=== PATIENT | female | born 1995 | race Caucasian/White ===

== ENCOUNTER → 2017-06-15 | Outpatient (CLI) | payer OTHER | LOC: M PAIN 14:00 | DX: R20.8 Other disturbances of skin sensation (principal); R10.2 Pelvic and perineal pain; J45.909 Unspecified asthma, uncomplicated; F41.9 Anxiety disorder, unspecified; F32.9 Major depressive disorder, single episode, unspecified; N80.9 Endometriosis, unspecified; K59.00 Constipation, unspecified; G43.909 Migraine, unspecified, not intractable, without status migrainosus; E05.90 Thyrotoxicosis, unspecified without thyrotoxic crisis or storm; Z79.899 Other long term (current) drug therapy; Z88.8 Allergy status to other drugs, medicaments and biological substances; Z87.891 Personal history of nicotine dependence | CPT/HCPCS: G0463 ==

== ENCOUNTER → 2017-06-28 | Outpatient (REF) | payer OTHER | LOC: M LAB REF 13:14 | DX: R87.612 Low grade squamous intraepithelial lesion on cytologic smear of cervix (LGSIL) (principal) ==

== ENCOUNTER → 2017-07-10 | Outpatient (CLI) | payer OTHER | LOC: M PAIN 15:15 | DX: R20.8 Other disturbances of skin sensation (principal); R10.2 Pelvic and perineal pain; G89.29 Other chronic pain; J45.909 Unspecified asthma, uncomplicated; Z79.891 Long term (current) use of opiate analgesic; Z79.899 Other long term (current) drug therapy; Z88.8 Allergy status to other drugs, medicaments and biological substances; Z87.891 Personal history of nicotine dependence | CPT/HCPCS: G0463 ==

== ENCOUNTER → 2017-07-13 | Outpatient (CLI) | payer OTHER | LOC: M PAIN 13:45 | DX: R20.8 Other disturbances of skin sensation (principal); R10.2 Pelvic and perineal pain; J45.909 Unspecified asthma, uncomplicated; Z79.891 Long term (current) use of opiate analgesic; Z79.899 Other long term (current) drug therapy; Z88.8 Allergy status to other drugs, medicaments and biological substances; Z87.891 Personal history of nicotine dependence | CPT/HCPCS: G0463 ==

== ENCOUNTER → 2017-07-26 | Outpatient (CLI) | payer BC, OTHER ==
[~2017-07-26] MED LIST: BUPIVACAINE HCL 0.25% 30 ML VIAL As Ordered; LIDOCAINE 1% SDV INJ 30 ML VIAL As Ordered; MIDAZOLAM INJ 2 MG/2 ML VIAL (J2250) As Ordered; TRIAMCINOLONE ACETONIDE SUSP 40 MG/ML VIAL (J3301) As Ordered; fentaNYL 100 MCG/2 ML INJECTION (J3010) As Ordered
== END ==
LOC: M PAIN 11:00
DX: G89.29 Other chronic pain (principal); R10.2 Pelvic and perineal pain; L90.5 Scar conditions and fibrosis of skin; J44.9 Chronic obstructive pulmonary disease, unspecified; F41.9 Anxiety disorder, unspecified; F32.9 Major depressive disorder, single episode, unspecified; Z79.899 Other long term (current) drug therapy; Z88.8 Allergy status to other drugs, medicaments and biological substances
CPT/HCPCS: J3301

== ENCOUNTER → 2017-09-21 | Outpatient (CLI) | payer OTHER | LOC: M PAIN 13:45 | DX: D36.15 Benign neoplasm of peripheral nerves and autonomic nervous system of abdomen (principal); R20.8 Other disturbances of skin sensation; J45.909 Unspecified asthma, uncomplicated; F41.9 Anxiety disorder, unspecified; F32.9 Major depressive disorder, single episode, unspecified; Z79.899 Other long term (current) drug therapy; Z88.8 Allergy status to other drugs, medicaments and biological substances; Z87.891 Personal history of nicotine dependence | CPT/HCPCS: G0463 ==

== ENCOUNTER → 2017-10-16 | Outpatient (CLI) | payer BC, OTHER | LOC: M PAIN 11:45 | DX: G89.29 Other chronic pain (principal); G57.92 Unspecified mononeuropathy of left lower limb; J45.909 Unspecified asthma, uncomplicated; F41.9 Anxiety disorder, unspecified; F32.9 Major depressive disorder, single episode, unspecified; F17.210 Nicotine dependence, cigarettes, uncomplicated; Z79.899 Other long term (current) drug therapy; Z88.8 Allergy status to other drugs, medicaments and biological substances | CPT/HCPCS: J3301 ==

== ENCOUNTER → 2017-12-26 | Outpatient (CLI) | payer OTHER | LOC: M PAIN 14:00 | DX: R20.8 Other disturbances of skin sensation (principal); Z79.891 Long term (current) use of opiate analgesic; Z79.899 Other long term (current) drug therapy; Z87.891 Personal history of nicotine dependence; Z88.8 Allergy status to other drugs, medicaments and biological substances | CPT/HCPCS: G0463 ==

== ENCOUNTER → 2018-02-15 | Outpatient (CLI) | payer OTHER | LOC: M PAIN 13:00 | DX: L90.5 Scar conditions and fibrosis of skin (principal); J45.909 Unspecified asthma, uncomplicated; F41.9 Anxiety disorder, unspecified; F32.9 Major depressive disorder, single episode, unspecified; F17.290 Nicotine dependence, other tobacco product, uncomplicated; Z79.899 Other long term (current) drug therapy; Z88.8 Allergy status to other drugs, medicaments and biological substances | CPT/HCPCS: G0463 ==

== ENCOUNTER → 2018-10-04 | Outpatient (CLI) | payer OTHER, BC ==
[~2018-10-04] MED LIST changes: -BUPIVACAINE HCL 0.25% 30 ML VIAL As Ordered; +IBUP80TA PO; -LIDOCAINE 1% SDV INJ 30 ML VIAL As Ordered; +MACR100C43 PO; -MIDAZOLAM INJ 2 MG/2 ML VIAL (J2250) As Ordered; +MILK120011 PO; +MINEOIL PO; +MORP20SO PO; +PERC5TAB12 PO; +PERCOCET PO; -TRIAMCINOLONE ACETONIDE SUSP 40 MG/ML VIAL (J3301) As Ordered; +VITAPRTA PO; +[UNRECOGNIZED DRUG - CODE] PR; -fentaNYL 100 MCG/2 ML INJECTION (J3010) As Ordered
[2018-10-04 16:43] LABS: BASO % 0.1 % (0.0-1.0); EOS % 0.6 % (0.0-3.0); HEMATOCRIT 37.4 % (36.0-47.0); HEMOGLOBIN 13.1 g/dl (12.0-15.5); LYMPH # 1.4 10^3/uL (1.5-6.5); LYMPH % 20.2 % (24.0-44.0); MEAN CORPUSCULAR HEMOGLOBIN 32.8 pg (27.0-33.0); MEAN CORPUSCULAR VOLUME 93.7 fl (80.0-96.0); MONO # 0.3 10^3/uL (0.0-0.8); MONO % 3.9 % (0.0-5.0); NEUTROPHILS % 74.9 % (36.0-66.0); PLATELET COUNT, AUTOMATED 174 10^3/uL (150-450); RED BLOOD COUNT 3.99 10^6/uL (4.00-5.40); WHITE BLOOD COUNT 6.7 10^3/uL (4.0-10.0)
[2018-10-04 18:11] LABS: CHLAMYDIA DNA AMPLIFICATION NEGATIVE (NEGATIVE); GC DNA AMPLIFICATION NEGATIVE (NEGATIVE)
[2018-10-07 11:21] LABS: HEPATITIS C VIRUS ABY INDEX < 0.0 INDEX (<0.8); HIV 1&2 SCREEN CENTAUR NEGATIVE (NEGATIVE); RUBELLA IgG QUALITATIVE IMMUNE (IMMUNE)
== END ==
LOC: M WUC 13:36
PROVIDERS: ATTEND Specialist
DX: Z36.89 Encounter for other specified antenatal screening (principal)

== ENCOUNTER → 2019-02-12 | Outpatient (REF) | payer OTHER, BC ==
[~2019-02-12] MED LIST changes: +OXYC1TAB23 PO
== END ==
LOC: M LAB REF 18:43
PROVIDERS: ATTEND Specialist
DX: Z23 Encounter for immunization (principal); Z3A.31 31 weeks gestation of pregnancy

== ENCOUNTER → 2019-02-24 | Outpatient (REF) | payer OTHER, BC ==
[~2019-02-24] MED LIST changes: +ALBU83IN INH; +ANEC4CRE3 TOP; +ANUS25SU PR; +GABA-843 PO; +OXYC1TAB23; +[UNRECOGNIZED DRUG - CODE] PO
== END ==
LOC: M LAB REF 17:18
PROVIDERS: ATTEND Advanced Practice Midwife
DX: O34.211 Maternal care for low transverse scar from previous cesarean delivery (principal); Z3A.00 Weeks of gestation of pregnancy not specified

== ENCOUNTER 2019-03-06 19:18 | Emergency (ER) | payer BC, OTHER ==
[~2019-03-06] VITALS: Ht 147.3 cm; Wt 81.8 kg
[~2019-03-06 19:18] MED LIST changes: -ALBU83IN INH; -ANEC4CRE3 TOP; -ANUS25SU PR; -GABA-843 PO; -OXYC1TAB23; -[UNRECOGNIZED DRUG - CODE] PO
[2019-03-06] MEDS ORDERED: GABA-843 (19:28)
[2019-03-06] MEDS ORDERED: OXYC1TAB23 (19:28)
[2019-03-06 20:42] LABS: HEMATOCRIT 34.5 % (36.0-47.0); HEMOGLOBIN 11.1 g/dl (12.0-15.5); MEAN CORPUSCULAR HEMOGLOBIN 29.4 pg (27.0-33.0); MEAN CORPUSCULAR HGB CONC 32.2 g/dl (32.0-36.5); MEAN CORPUSCULAR VOLUME 91.3 fl (80.0-96.0); PLATELET COUNT, AUTOMATED 178 10^3/uL (150-450); RED BLOOD COUNT 3.78 10^6/uL (4.00-5.40); WHITE BLOOD COUNT 9.2 10^3/uL (4.0-10.0)
[2019-03-06 21:04] VITALS: BP 135/83
[2019-03-06] MEDS ORDERED: ANEC4CRE3 TOP (21:30)
[2019-03-06] MEDS ORDERED: ANUS25SU PR (21:30)
[2019-03-11] MEDS ORDERED: OXYC1TAB23 PO (15:58)
== END 2019-03-06 21:51 | disposition home or self-care (01) ==
LOC: M ED 19:18
DX: K64.9 Unspecified hemorrhoids (principal); K64.8 Other hemorrhoids; K92.1 Melena; Z87.891 Personal history of nicotine dependence; Z79.899 Other long term (current) drug therapy; Z88.1 Allergy status to other antibiotic agents

== ENCOUNTER 2019-03-10 18:45 | Outpatient (CLI) | payer BC, OTHER ==
[~2019-03-10] VITALS: Ht 147.3 cm; Wt 80.5 kg
[~2019-03-10 18:45] MED LIST changes: +ANEC4CRE3 TOP; +ANUS25SU PR; +GABA-843; +OXYC1TAB23
[2019-03-10 19:10] VITALS: BP 136/77
[2019-03-10] MEDS ORDERED: LACTATED RINGER'S 1000 ML IV ONE (20:00)
[2019-03-10] MEDS ORDERED: PERCOCET 5MG/325MG TAB PO ONE (20:00)
[2019-03-10 20:02] LABS: APPEARANCE, URINE CLEAR (CLEAR); BACTERIA, URINE AUTO 2+ (NEGATIVE); BILIRUBIN, URINE AUTO NEGATIVE (NEGATIVE); BLOOD, URINE BLOOD NEGATIVE (NEGATIVE); COLOR, URINE YELLOW (YELLOW); GLUCOSE, URINE (UA) AUTO NEGATIVE (NEGATIVE); KETONE, URINE AUTO NEGATIVE (NEGATIVE); LEUKOCYTE ESTERASE, URINE AUTO NEGATIVE (NEGATIVE); MUCUS, URINE SMALL (NEGATIVE); NITRITE, URINE AUTO NEGATIVE (NEGATIVE); PROTEIN, URINE AUTO NEGATIVE (NEGATIVE); RBC, URINE AUTO 0 /HPF (0-3); SPECIFIC GRAVITY URINE AUTO 1.013 (1.002-1.035); SQUAMOUS EPITHELIAL CELL UR AU 1 /HPF (0-6); UROBILINOGEN, URINE AUTO 0.2 mg/dL (0.0-2.0); WBC, URINE AUTO 2 /HPF (0-3)
[2019-03-10] MEDS ORDERED: ONDANSETRON 4 MG ORAL DISINTEGRATING TAB (Q0162 PER 1MG) PO ONE (20:45)
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
[2019-03-11] MEDS ORDERED: OXYC1TAB23 PO (15:58)
== END 2019-03-10 21:16 | disposition home or self-care (01) ==
LOC: M LDO 18:45
PROVIDERS: ATTEND Advanced Practice Midwife
DX: O99.89 Other specified diseases and conditions complicating pregnancy, childbirth and the puerperium (principal); R10.30 Lower abdominal pain, unspecified; O47.02 False labor before 37 completed weeks of gestation, second trimester; Z3A.35 35 weeks gestation of pregnancy
CPT/HCPCS: 59025; 81001; 87086; G0378; G0463; Q0162

== ENCOUNTER 2019-03-19 12:51 | Outpatient (CLI) | payer BC, OTHER ==
[~2019-03-19] VITALS: Ht 148.6 cm; Wt 81.5 kg
[~2019-03-19 12:51] MED LIST changes: -GABA-843; +GABA-843 PO
[2019-03-19 13:11] VITALS: BP 102/52
[2019-03-19] MEDS ORDERED: LACTATED RINGER'S 1000 ML IV ONE (14:00)
--- NOTE | 2019-03-19 14:40 | REP ---
Clinical: Flank pain with history of nephrolithiasis and nephrostomy. Technique: Real time decker scale and color evaluation using curved array transducer. Findings: Right kidney measures 11.1 x 6.6 x 5.0 cm and demonstrates mild/moderate hydronephrosis and 5 mm lower pole nonobstructing calculus. Left kidney measures 11.7 x 5.5 x 6.0 cm without hydronephrosis or nephrolithiasis. Bladder is grossly unremarkable although a right ureteral jet is not visualized. Advanced ( heart rate equals 161 beats per minute). Impression: 1. Moderate right-sided hydronephrosis with 5 mm nonobstructing right renal calculus. Electronically Signed by Bronson Kwok MD 03/19/2019 02:31 P
[2019-03-19 14:53] LABS: HEMATOCRIT 32.9 % (36.0-47.0); HEMOGLOBIN 10.4 g/dl (12.0-15.5); MEAN CORPUSCULAR HEMOGLOBIN 28.5 pg (27.0-33.0); MEAN CORPUSCULAR HGB CONC 31.6 g/dl (32.0-36.5); MEAN CORPUSCULAR VOLUME 90.1 fl (80.0-96.0); PLATELET COUNT, AUTOMATED 162 10^3/uL (150-450); RED BLOOD COUNT 3.65 10^6/uL (4.00-5.40); WHITE BLOOD COUNT 9.3 10^3/uL (4.0-10.0)
[2019-03-19] MEDS: LR 1,000 ML IV SCH ×2 (15:13→22:00)
[2019-03-19 15:16] LABS: ALBUMIN 2.7 GM/DL (3.2-5.2); BLOOD UREA NITROGEN 5 MG/DL (7-18); CALCIUM LEVEL 8.6 MG/DL (8.5-10.1); CARBON DIOXIDE LEVEL 21 MEQ/L (21-32); CHLORIDE LEVEL 112 MEQ/L (98-107); CREATININE FOR GFR 0.59 MG/DL (0.55-1.30); GLOMERULAR FILTRATION RATE > 60.0 (>60); GLUCOSE, FASTING 84 MG/DL (70-100); PHOSPHORUS LEVEL 3.1 MG/DL (2.5-4.9); POTASSIUM SERUM 4.2 MEQ/L (3.5-5.1); SODIUM LEVEL 140 MEQ/L (136-145)
[2019-03-19] MEDS ORDERED: BUTORPHANOL 2 MG/ML INJ (J0595) IV ONE ×2 (15:30→21:00)
[2019-03-19] MEDS ORDERED: PROMETHAZINE INJ 25 MG/ML VIAL (J2550) IV ONE ×2 (15:30→21:00)
[2019-03-19 15:37] VITALS: BP 105/55
[2019-03-19] MEDS: TAMSULOSIN 0.4 MG CAP PO SCH (16:04)
[2019-03-19 16:35] VITALS: BP 122/90
[2019-03-19 18:05] VITALS: BP 118/64
[2019-03-19 21:15] VITALS: BP 102/66
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
[2019-03-20] VITALS (10 sets, daily range): BP systolic 73–124; BP diastolic 36–85
[2019-03-20] MEDS ORDERED: PERCOCET 5MG/325MG TAB As Ordered ONE (03:56)
[2019-03-20] MEDS: PERCOCET 5MG/325MG TAB PO PRN ×5 (04:01→19:31)
[2019-03-20] MEDS: LR 1,000 ML IV SCH (08:38)
[2019-03-20] MEDS: TAMSULOSIN 0.4 MG CAP PO SCH (08:52)
[2019-03-20 10:31] LABS: INR 0.98; PROTHROMBIN TIME 12.7 SECONDS (11.8-14.0)
[2019-03-20] MEDS ORDERED: diphenhydrAMINE INJ 50MG/ML VIAL (J1200) As Ordered ONE (13:53)
[2019-03-20] MEDS ORDERED: fentaNYL 100 MCG/2 ML INJECTION (J3010) As Ordered ONE ×2 (13:54→15:00)
[2019-03-20] MEDS ORDERED: LIDOCAINE 1% MDV 20ML VIAL As Ordered ONE (13:54)
[2019-03-20] MEDS ORDERED: MIDAZOLAM INJ 2 MG/2 ML VIAL (J2250) As Ordered ONE (13:54)
[2019-03-20] MEDS ORDERED: ISOVUE-300 61% 50ML VIAL (Q9967) As Ordered ONE (13:54)
[2019-03-20] MEDS ORDERED: ceFAZolin 1GM INJ (J0690 PER 500MG) As Ordered ONE (14:24)
[2019-03-20] MEDS: PROMETHAZINE INJ 25 MG/ML VIAL (J2550) IV PRN (15:46)
--- NOTE | 2019-03-20 15:49 | POST-OPPD ---
Postoperative Procedure Note Date Of Procedure: Mar 20, 2019 Time Of Procedure: 15:48 PREOPERATIVE DIAGNOSIS: right hydronephrosis. pain POSTOPERATIVE DIAGNOSIS: right hydronephrosis. pain FINDINGS: right hydronephrosis. PROCEDURE: r PCN SURGEON: shanta ANESTHESIA: mod sed ESTIMATED BLOOD LOSS: < 5 ml COMPLICATIONS: none POSTOPERATIVE CONDITION: stable DINH CLIFFORD MD Mar 20, 2019 15:49
--- NOTE | 2019-03-20 16:04 | CR.PDOC ---
General Date of Consultation: Mar 20, 2019 Referring Provider: FER SINGH MD. Attending Physician: FER SINGH MD. Consultation REASON FOR CONSULTATION/CHIEF COMPLAINT: Right flank pain HISTORY OF PRESENT ILLNESS: Jaquan is a 23-year-old 7, para 1, at 36 5/7 weeks who comes in with severe right flank pain starting early this morning and getting progressively worse throughout the day. She had the same pain during her first which required a nephrostomy tube. Renal ultrasound was done which showed a 5 mm nonobstructing stone with moderate right hydronephrosis. She denies any fever but has had nausea and thinks that she had some gross hematuria several days ago. She has also had some burning with urination. The stone she had during her first passed through the nephrostomy tube. She has passed one or 2 other stones during her lifetime. ALLERGIES: Please see below. HOME MEDICATIONS: Please see below. PAST MEDICAL HISTORY: 1. Graves' disease 2. Asthma 3. Seasonal allergies 4. Anxiety and depression Past surgical history: -D&C -Nephrostomy tube placement in April 2014 - section April 2014 -Colposcopy for an abnormal Pap smear Family history: Diabetes, depression, anxiety, cervical cancer, breast cancer, lung cancer, leukemia, and supraventricular tachycardia Social history: She is single but the father of the baby is at the bedside and s upportive. She is a nonsmoker she denies alcohol or drug use. She does have a history of gonorrhea. REVIEW OF SYSTEMS: A 12 system review was essentially negative except for what was above PHYSICAL EXAMINATION: VITAL SIGNS: Please see below. GENERAL APPEARANCE: Well-developed well-nourished female who is walking around very uncomfortable in obvious pain HEENT: Normocephalic atraumatic PERRLA RESPIRATORY: Clear to auscultation percussion CARDIOVASCULAR: Tachycardic but regular rhythm ABDOMEN: Gravid uterus without any significant abdominal EXTREMITIES: Severe right CVA tenderness NEUROLOGICAL: Nonfocal an alert and oriented 3 LABORATORY DATA: Please see below. ASSESSMENT 1. Moderate right hydroureteronephrosis with some irritative voiding symptoms in a patient with a history of kidney stones also found to have a [address] scan 2. 37 week female 3. History of stones and necessity for right nephrostomy tube during her last PLAN: -We discussed all different options, alternatives, risks, and benefits and she is so uncomfortable that she would like to go ahead with nephrostomy tube placement today. We will strain her urine and when she delivers her baby she will need further workup and follow-up for her stone. Vital Signs/I&O Vital Signs Date Time Temp Pulse Resp B/P (MAP) Pulse Ox O2 Delivery O2 Flow Rate FiO2 03/20/19 13:03 18 87/61 (70) 03/20/19 13:01 98.4 03/20/19 07:36 90 I&O- Last 24 Hours up to 6 AM 03/20/19 06:00 Intake Total 3440 ml Output Total 2700 ml Balance 740 ml Laboratory Data Labs 24H Laboratory Tests 2 03/19/19 14:47: Nucleated Red Blood Cells % (auto) 0.0, Anion Gap 7L, Glomerular Filtration Rate > 60.0, Calcium Level 8.6, Phosphorus Level 3.1, Albumin 2.7L 03/20/19 09:04: Prothrombin Time 12.7, Prothromb Time International Ratio 0.98, Activated Partial Thromboplast Time 26.0 CBC/BMP Laboratory Tests 03/19/19 14:47 Allergies Coded Allergies: doxycycline (Verified Allergy, Severe, throat swelling, 03/10/19) Home Medications Scheduled PRN Oxycodone HCl/Acetaminophen (Oxycodone-Acetaminophen 5-325) 1 Each Tablet, 1 TAB PO Q6-8HP PRN for PAIN, #14 Miscellaneous Medications Gabapentin (Gabapentin) 300 Mg Capsule, (Reported) CECILIA LOYOLA MD Mar 20, 2019 15:09
[2019-03-20 16:33] LABS: AMORPHOUS SEDIMENT SMALL (NEGATIVE); BACTERIA, URINE AUTO NEGATIVE (NEGATIVE); MUCUS, URINE SMALL (NEGATIVE); RBC, URINE AUTO TNTC /HPF (0-3); SQUAMOUS EPITHELIAL CELL UR AU 0 /HPF (0-6); WBC, URINE AUTO 9 /HPF (0-3)
[2019-03-20] MEDS: BUTORPHANOL 2 MG/ML INJ (J0595) IV PRN ×2 (16:37→20:58)
[2019-03-21] VITALS (8 sets, daily range): BP systolic 89–151; BP diastolic 51–80
[2019-03-21] MEDS: PROMETHAZINE INJ 25 MG/ML VIAL (J2550) IV PRN (00:34)
[2019-03-21] MEDS: BUTORPHANOL 2 MG/ML INJ (J0595) IV PRN (02:36)
[2019-03-21] MEDS: PERCOCET 5MG/325MG TAB PO PRN ×4 (04:02→16:03)
--- NOTE | 2019-03-21 07:33 | REP ---
IR Percutaneous nephrostomy catheter placement using fluoroscopy and ultrasound guidance. IR nephrostogram and ureterogram. Ultrasound of the right kidney. Clinical information: Right hydronephrosis and right flank pain. 36 weeks . Physician: Dr Dickson. Referring physician: Dr. Reyna Garcia. Procedure: The patient was advised of the benefits, risks and alternatives of the procedure and informed consent was obtained. The time-out was performed with verification of the patient's name, MRN, site of procedure and type of procedure to be performed. The patient was positioned in the semi prone position on the angiographic table. The site was prepped and draped in the usual sterile fashion. Fentanyl was administered for analgesia. The physician spent 45 minutes of face to face time with the patient. The anticipated puncture site on the flank was anesthetized with lidocaine. Using ultrasound guidance, a calyx was accessed with a 21 gauge Chiba needle. A nephrostogram and ureterogram was performed demonstrating hydronephrosis and hydroureter. An 018 wire was then advanced into the collecting system. The needle was then exchanged for a non vascular introducer set. An Amplatz wire was then advanced into the ureter. An 8-Erit[place]an nephrostomy catheter was then advanced into the renal collecting system. The pigtail was formed and locked in position. A final nephrostogram ureterogram was performed confirming position of the pigtail in the renal pelvis. The catheter was sutured in position with 2-0 Prolene and a sterile dressing was applied. The catheter was placed gravity drainage. The patient was returned to the PRU in stable condition. EBL: < 5 ml. Complications: None. Conclusion: 1. Nephrostogram and ureterogram demonstrate hydronephrosis and hydroureter . 2. Successful right-sided nephrostomy catheter placement. Patient to follow up in IR in 8 to 12 weeks for routine catheter exchange and/or stenting. Thank you for this referral. Electronically Signed by Andreina Dickson MD 03/20/2019 04:18 P
[2019-03-21] MEDS: GABAPENTIN 300 MG CAP PO SCH ×2 (08:39→16:03)
[2019-03-21] MEDS: TAMSULOSIN 0.4 MG CAP PO SCH (08:39)
--- NOTE | 2019-03-21 10:28 | IPNPDOC ---
Text Note Date of Service The patient was seen on 03/21/19. NOTE Outpatient Pt curled in bed, Left side lying. R Nephrostomy tube draining clear yellow urine. Dressing dry, intact. Pt verbalizing inadequate pain management during the tube insertion procedure, weeping during discussion. "Didn't give me anything." Reports pain in R flank radiating into her abdomen. States "I feel trapped in my body, can't move, can't function." VSS, afebrile. NST Cat I, rare UC. Operative report reviewed, documented administration of Fentanyl 50mg x2 in addition to local lidocaine administration. Add'l fentanyl 50mg given post procedure per order Dr Pena. Currently restarted her gabapentin 300mg TID along with percocet II tabs Q 4hrs prn with consistent administration. Updated Dr Lane. He will review status with patient later today. VS,Fishbone, I+O VS, Fishbone, I+O Vital Signs Date Time Temp Pulse Resp B/P (MAP) Pulse Ox O2 Delivery O2 Flow Rate FiO2 03/21/19 08:46 20 03/21/19 06:35 98.3 91 121/78 (92) 03/20/19 16:37 99 Room Air 03/20/19 15:30 2 I&O- Last 24 Hours up to 6 AM 03/21/19 06:00 Intake Total 2650 ml Output Total 3725 ml Balance -1075 ml Niecy Garibay CNM Mar 21, 2019 10:28
--- NOTE | 2019-03-21 11:33 | IPNPDOC ---
Text Note Date of Service The patient was seen on 03/21/19. NOTE Patient still with complain of severe right flank pain radiating to her abdomen. She is crying in bed and is complaining about not receiving pain medication during the procedure yesterday although it is documented that she did get local anesthesia and 50 g of fentanyl. She also received fentanyl post-procedurally also. When I tried to examine the patient she doesn't even want me to touch her back but I wanted to try to see if she is having muscle spasming also. The urinalysis from the nephrostomy tube did show 9 white blood cells and too numerous to count red blood cells but her original urinalysis was negative so we will await a final urine culture. Physical exam: female who is extremely uncomfortable lying on her left side in bed crying out from pain. She is alert and oriented 3 and her vital signs were stable except for tachycardia. Her lungs are clear. The nephrostomy tube is draining clear yellow urineH Her abdomen is gravid. She screams with back pain with even a very light touch and there is probably some musculoskeletal component. Impression: -Post procedure day 1 nephrostomy tube placement still with very severe right flank pain radiating to the abdomen possibly with a musculoskeletal component -37 week gravid female -History of nephrolithiasis found on an ultrasound 03/19/19 to have moderate right hydro-and a nonobstructing 5 mm stone Plan: -Continue nephrostomy tube drainage for now -Recommend heating pad to her back and consideration of a muscle relaxer if this is safe during and I will leave this up to Dr. Pena -Await final urine culture -Strain all urine for stones VS,Fishbone, I+O VS, Fishbone, I+O Vital Signs Date Time Temp Pulse Resp B/P (MAP) Pulse Ox O2 Delivery O2 Flow Rate FiO2 03/21/19 08:46 20 03/21/19 06:35 98.3 91 121/78 (92) 03/20/19 16:37 99 Room Air 03/20/19 15:30 2 I&O- Last 24 Hours up to 6 AM 03/21/19 06:00 Intake Total 2650 ml Output Total 3725 ml Balance -1075 ml CECILIA LOYOLA MD Mar 21, 2019 11:33
--- NOTE | 2019-03-21 18:23 | IPNPDOC ---
Text Note Date of Service The patient was seen on 03/21/19. NOTE Outpatient Pt requesting discharge per previous discussion with Dr Lane status continues to be reassuring Rx for percocet sent by Dr Lane. Rx phenergan sent to her pharmacy per Dr Lane. Enc rest through the weekend. Call office Sunday for appt next week VS,Fishbone, I+O VS, Fishbone, I+O Vital Signs Date Time Temp Pulse Resp B/P (MAP) Pulse Ox O2 Delivery O2 Flow Rate FiO2 03/21/19 16:06 98.7 116 20 151/74 (99) 03/21/19 12:09 97 03/20/19 16:37 Room Air 03/20/19 15:30 2 I&O- Last 24 Hours up to 6 AM 03/21/19 05:59 Intake Total 2650 ml Output Total 3725 ml Balance -1075 ml Niecy Garibay CNM Mar 21, 2019 18:23
[2019-03-21] MEDS ORDERED: PROMETHAZINE 25 MG TAB PO ONE (19:00)
[2019-03-26] MEDS ORDERED: [UNRECOGNIZED DRUG - CODE] PO (10:10)
[2019-03-26] MEDS ORDERED: ALBU83IN INH (10:21)
== END 2019-03-21 18:29 | disposition home or self-care (01) ==
LOC: M LDO 12:51
PROVIDERS: ATTEND Advanced Practice Midwife
DX: O26.893 Other specified pregnancy related conditions, third trimester (principal); R10.9 Unspecified abdominal pain; O99.89 Other specified diseases and conditions complicating pregnancy, childbirth and the puerperium; N13.39 Other hydronephrosis; N20.0 Calculus of kidney; Z79.891 Long term (current) use of opiate analgesic; Z79.899 Other long term (current) drug therapy; Z88.1 Allergy status to other antibiotic agents; Z3A.36 36 weeks gestation of pregnancy
CPT/HCPCS: 36415; 50432; 59025; 76775; 76942; 80069; 81015; 85027; 85610; 85730; 87086; 96374; 96375; 99152; 99153; C1729; C1769; C1894; G0378; G0463; J0595; J0690; J3010; Q9967

== ENCOUNTER 2019-03-27 01:46 | Inpatient (IN) | payer BC, OTHER ==
[~2019-03-27] VITALS: Ht 147.3 cm; Wt 84.5 kg
[2019-03-27] VITALS (8 sets, daily range): BP systolic 101–137; BP diastolic 55–78
[~2019-03-27 01:46] MED LIST changes: +ALBU83IN INH; +[UNRECOGNIZED DRUG - CODE] PO
[2019-03-27 02:52] LABS: HEMATOCRIT 33.2 % (36.0-47.0); HEMOGLOBIN 10.4 g/dl (12.0-15.5); MEAN CORPUSCULAR HEMOGLOBIN 28.1 pg (27.0-33.0); MEAN CORPUSCULAR HGB CONC 31.3 g/dl (32.0-36.5); MEAN CORPUSCULAR VOLUME 89.7 fl (80.0-96.0); PLATELET COUNT, AUTOMATED 160 10^3/uL (150-450); WHITE BLOOD COUNT 7.3 10^3/uL (4.0-10.0)
[2019-03-27] MEDS ORDERED: LR 1,000 ML IV SCH ×2 (06:15→09:30)
[2019-03-27] MEDS ORDERED: ceFAZolin SOD 2 GM in IV 1 EA IV ONE (06:15)
[2019-03-27] MEDS ORDERED: LR 800 ML IV ONE (06:15)
[2019-03-27] MEDS ORDERED: BICITRA 30ML SOLN UDC PO ONE (06:15)
[2019-03-27] MEDS ORDERED: MORPHINE PRES-FREE INJ 10 MG/10 ML VIAL (J2274) As Ordered ONE (07:22)
[2019-03-27] MEDS ORDERED: OXYTOCIN INJ 10 UNITS/ML VIAL (J2590) As Ordered ONE ×2 (07:22→08:37)
[2019-03-27] MEDS ORDERED: BUPIVACAINE HCL 0.25% 10 ML VIAL SC ONE (07:30)
[2019-03-27] MEDS ORDERED: BUPIVACAINE HCL 0.25% 30 ML VIAL As Ordered ONE (07:32)
[2019-03-27] MEDS ORDERED: diphenhydrAMINE INJ 50MG/ML VIAL (J1200) IV PRN (07:48)
[2019-03-27] MEDS ORDERED: NALBUPHINE HCL 10 MG/ML AMP (J2300) IV PRN (07:48)
[2019-03-27] MEDS ORDERED: ONDANSETRON 4MG/2ML VIAL (J2405) IV PRN ×3 (07:48→09:30)
[2019-03-27] MEDS ORDERED: NALOXONE INJ 0.4 MG/1 ML VIAL (J2310) IV PRN ×2 (07:48)
[2019-03-27] MEDS ORDERED: METOCLOPRAMIDE INJ 10MG/2ML VIAL (J2765) IV PRN ×2 (07:48→09:30)
[2019-03-27] MEDS ORDERED: ONDANSETRON 4MG/2ML VIAL (J2405) As Ordered ONE (07:55)
[2019-03-27] MEDS ORDERED: KETOROLAC 60 MG/2 ML VIAL (J1885) As Ordered ONE (08:23)
[2019-03-27] MEDS ORDERED: RHOGAM 300 MCG (1500 IU) INJ (J2790) IM SCH (09:00)
[2019-03-27] MEDS: PRENATAL VITAMINS CHEWABLE TABLET PO SCH (09:00)
[2019-03-27] MEDS ORDERED: MEASLES,MUMPS,RUBELLA VACCINE INJ (MMR-II) (90707) SC SCH (09:00)
[2019-03-27] MEDS ORDERED: OXYTOCIN DRIP 30 UNITS in IV 1 EA IV SCH (09:00)
[2019-03-27] MEDS ORDERED: DOCUSATE SODIUM 100 MG CAP PO PRN (09:00)
[2019-03-27] MEDS ORDERED: KETOROLAC 30 MG/ML VIAL (J1885) IV PRN (09:30)
[2019-03-27] MEDS ORDERED: fentaNYL 100 MCG/2 ML INJECTION (J3010) IV PRN (09:30)
[2019-03-27] MEDS ORDERED: MEPERIDINE INJ 25 MG/ML VIAL (J2175) IV PRN (09:30)
[2019-03-27] MEDS ORDERED: PERCOCET 5MG/325MG TAB PO PRN (09:30)
[2019-03-27] MEDS ORDERED: OXYTOCIN 30 UNITS IN 0.9% NaCl 500ML IV BAG (J2590) As Ordered ONE (09:46)
--- NOTE | 2019-03-27 10:44 | RO ---
DATE OF PROCEDURE: 03/27/2019 PREPROCEDURE DIAGNOSES: 37-6/7s weeks gestation, urinary tract obstruction, status post nephrostomy tube placement. Prior section times one. POSTPROCEDURE DIAGNOSES: 37-6/7s weeks gestation, urinary tract obstruction, status post nephrostomy tube placement. Prior section times one. PROCEDURE: Repeat low transverse section. SURGEON: Dr. Pedrito Lane. LEADERSHIP PROGRAM ASSOCIATE: Dr. Marisela Pena. ANESTHESIA: Spinal. ESTIMATED BLOOD LOSS: 500 mL. FINDINGS: 3060 gram female infant, Apgars 8 and 9. Normal uterus, fallopian tubes and ovaries. DESCRIPTION OF PROCEDURE: Patient was taken to the operating room where spinal anesthesia was induced. She was prepped and draped in a sterile fashion in the supine position. A Parmar catheter was placed. A Pfannenstiel skin incision was made with a scalpel, carried through to the fascia, the fascia nicked and extended. The fascia was dissected off the rectus muscles. Peritoneal cavity was entered. A curvilinear incision was made in the lower uterine segment until bulging membranes were noted. This was extended manually. The membranes ruptured with clear fluid. The infant was delivered in the vertex position without difficulty. The cord was doubly clamped and cut. The infant was handed off to awaiting nurses. The placenta was expressed. The uterus exteriorized and cleared of clots and debris. The uterine incision was closed with #0 Vicryl in a running locked fashion. A second imbricating layer of #0 Vicryl was placed. The uterus was placed back into the abdominal cavity. The perineum was closed with #2-0 Vicryl. The deep layers of the incision were freed of scar tissue including the fascia layer. The area was injected on the left-hand side of incision with 10 mL of 0.25% Marcaine. The fascia was closed with #0 Vicryl in a running fashion. The deep layer was irrigated and closed with #-0 chromic. The skin was closed with #4-0 Monocryl subcuticular sutures. Sponge, instrument and needle counts were correct. Marisela Pena MD assisted throughout the procedure. He helped create each layer of the incision as well as the hysterotomy. He helped deliver the fetus and subsequently close. He was indispensable to the successful performance of the procedure.
[2019-03-27] MEDS: PERCOCET 5MG/325MG TAB PO PRN ×2 (10:59→16:15)
[2019-03-27] MEDS: LR 1,000 ML IV SCH ×2 (14:22→17:00)
[2019-03-27] MEDS: KETOROLAC 30 MG/ML VIAL (J1885) IV SCH ×2 (14:52→20:55)
[2019-03-28] MEDS: PERCOCET 5MG/325MG TAB PO PRN ×8 (00:10→23:51)
[2019-03-28 02:00] VITALS: BP 119/67
[2019-03-28] MEDS: KETOROLAC 30 MG/ML VIAL (J1885) IV SCH (03:19)
[2019-03-28 06:00] VITALS: BP 125/76
[2019-03-28] MEDS ORDERED: OXYC1TAB23 PO (06:39)
[2019-03-28 07:06] LABS: HEMATOCRIT 28.5 % (36.0-47.0); HEMOGLOBIN 8.9 g/dl (12.0-15.5); MEAN CORPUSCULAR HEMOGLOBIN 28.3 pg (27.0-33.0); MEAN CORPUSCULAR HGB CONC 31.2 g/dl (32.0-36.5); MEAN CORPUSCULAR VOLUME 90.5 fl (80.0-96.0); PLATELET COUNT, AUTOMATED 140 10^3/uL (150-450); RED BLOOD COUNT 3.15 10^6/uL (4.00-5.40)
[2019-03-28] MEDS: PRENATAL VITAMINS CHEWABLE TABLET PO SCH (08:00)
[2019-03-28 10:00] VITALS: BP 100/56
[2019-03-28] MEDS: IBUPROFEN 800 MG TAB PO SCH ×2 (12:08→18:47)
[2019-03-28] MEDS: GABAPENTIN 300 MG CAP PO SCH ×3 (12:16→20:07)
[2019-03-28 14:17] VITALS: BP 122/60
[2019-03-28 18:45] VITALS: BP 118/70
[2019-03-28 22:30] VITALS: BP 128/74
[2019-03-29 02:00] VITALS: BP 118/74
[2019-03-29] MEDS: IBUPROFEN 800 MG TAB PO SCH ×2 (03:02→12:27)
[2019-03-29] MEDS: PERCOCET 5MG/325MG TAB PO PRN ×3 (05:27→14:45)
[2019-03-29 05:59] VITALS: BP 118/78
[2019-03-29] MEDS: GABAPENTIN 300 MG CAP PO SCH ×2 (07:45→16:29)
[2019-03-29] MEDS: PRENATAL VITAMINS CHEWABLE TABLET PO SCH (07:45)
--- NOTE | 2019-03-29 12:29 | DS.PDOC ---
Discharge Summary General Date of Admission Mar 27, 2019 at 01:46 Date of Discharge 03/29/19 Discharge Summary PROCEDURES PERFORMED DURING STAY: Repeat section. ADMITTING DIAGNOSES: 1. Previous section 2.. Kidney disease with nephrostomy tube placement 3. Satisfied parity DISCHARGE DIAGNOSES: 1. Repeat section with bilateral tubal ligation 2. Kidney disease COMPLICATIONS/CHIEF COMPLAINT: Previous Section, Satisfied Parity.... Kidney disease with severe hydronephrosis and nephrostomy tube placement during HISTORY OF PRESENT ILLNESS: [address] Lane 03/27. has been complicated by kidney disease with subsequent pain management issues HOSPITAL COURSE: Tolerating regular diet. OOB independently. Voiding and passing flatus. Minimal urinary output at this time via nephrostomy tube. DISCHARGE MEDICATIONS: Please see below. ALLERGIES: Please see below. PHYSICAL EXAMINATION ON DISCHARGE: VITAL SIGNS: Please see below. GENERAL: NAD HEENT: WNL NECK: Supple CARDIOVASCULAR EXAMINATION: HRR, normotensive RESPIRATORY EXAMINATION: Clear and unlabored ABDOMINAL EXAMINATION: Active BS. Fundus firm. Dressing intact with old drainage EXTREMITIES: Equal strength and motion SKIN: Intact NEUROLOGICAL EXAMINATION: Grossly intact PSYCHIATRIC EXAMINATION: Appropriate LABORATORY DATA: Please see below. PROGNOSIS: Good ACTIVITY: As tolerated DIET: Regular DISCHARGE PLAN: Home today. F/U with urology next week. Otherwise routine precautions DISPOSITION: Home. DISCHARGE INSTRUCTIONS: 1. Pelvic rest. Call with fever, N/V, foul wound exudate. 2. Medications as directed. Wean off percocet 3. F/U urology. RTO AWP 2wks and 6wks DISCHARGE CONDITION: Stable. Vital Signs/I&Os Vital Signs Date Time Temp Pulse Resp B/P (MAP) Pulse Ox O2 Delivery O2 Flow Rate FiO2 03/29/19 10:29 20 03/29/19 05:59 98.6 98 118/78 (91) 99 Room Air 03/27/19 10:10 97 I&O- Last 24 Hours up to 6 AM 03/29/19 06:00 Intake Total 1140 ml Output Total 975 ml Balance 165 ml Discharge Medications Scheduled Gabapentin (Gabapentin) 300 Mg Capsule, 300 MG PO TID, (Reported) Scheduled PRN Albuterol Sulf (Albuterol Sulfate) 2.5 Mg/3 Ml Vial.neb, 2.5 MG INH for SHORTNESS OF BREATH, (Reported) Oxycodone HCl/Acetaminophen (Oxycodone-Acetaminophen 5-325) 1 Each Tablet, 1 TAB PO Q6-8HP PRN for PAIN Oxycodone HCl/Acetaminophen (Oxycodone-Acetaminophen 5-325) 1 Each Tablet, 1 TAB PO TIDP PRN for pain Promethazine HCl (Phenergan) 25 Mg/1 Ml Vial, 25 MG PO PRN PRN for NAUSEA, (Reported) Allergies Coded Allergies: doxycycline (Verified Allergy, Severe, throat swelling, 03/26/19) Niecy Garibay CNM Mar 29, 2019 12:29
== END 2019-03-29 16:55 | disposition home or self-care (01) | DRG 540 ==
LOC: M LDI 01:46 → M OBS 10:15
PROVIDERS: ADMIT Specialist; ATTEND Specialist
PROC: 10D00Z1 Extraction of Products of Conception, Low, Open Approach (ICD-10-PCS; principal; 2019-03-27 07:30)
DX: O34.211 Maternal care for low transverse scar from previous cesarean delivery (principal); N13.30 Unspecified hydronephrosis; Z37.0 Single live birth; Z3A.37 37 weeks gestation of pregnancy; Z88.8 Allergy status to other drugs, medicaments and biological substances

== ENCOUNTER → 2019-04-30 | Outpatient (REF) | payer BC, OTHER ==
[2019-04-30 18:46] LABS: APPEARANCE, URINE CLEAR (CLEAR); BACTERIA, URINE AUTO NEGATIVE (NEGATIVE); BILIRUBIN, URINE AUTO NEGATIVE (NEGATIVE); BLOOD, URINE BLOOD NEGATIVE (NEGATIVE); COLOR, URINE STRAW (YELLOW); GLUCOSE, URINE (UA) AUTO NEGATIVE (NEGATIVE); KETONE, URINE AUTO NEGATIVE (NEGATIVE); LEUKOCYTE ESTERASE, URINE AUTO NEGATIVE (NEGATIVE); MUCUS, URINE SMALL (NEGATIVE); NITRITE, URINE AUTO NEGATIVE (NEGATIVE); PROTEIN, URINE AUTO NEGATIVE (NEGATIVE); RBC, URINE AUTO 0 /HPF (0-3); SQUAMOUS EPITHELIAL CELL UR AU 0 /HPF (0-6); UROBILINOGEN, URINE AUTO 0.2 mg/dL (0.0-2.0); WBC, URINE AUTO 0 /HPF (0-3)
== END ==
LOC: M SMT 17:37
PROVIDERS: ATTEND Nurse Practitioner Women's Health
DX: R30.0 Dysuria (principal)

== ENCOUNTER → 2020-08-04 | Outpatient (REF) | payer OTHER, BC ==
[~2020-08-04] MED LIST changes: +GABA-282 PO; -GABA-843 PO
== END ==
LOC: M SFHCWAGY 17:15
PROVIDERS: ATTEND Specialist
DX: Z12.4 Encounter for screening for malignant neoplasm of cervix (principal)

== ENCOUNTER → 2020-10-04 | Outpatient (CLI) | payer BC ==
--- NOTE | 2020-10-08 01:19 | ECWPNPC ---
PATIENT NAME: HUDSON MOSS : 1995 GENDER: FEMALE VISIT DATE: 10/04/2020 DISCHARGE DATE: 10/04/20 1434 VISIT LOCKED DATE TIME: PHYSICIAN: CHRISTINA HIGUERA RESOURCE: CHRISTINA HIGUERA REASON FOR APPOINTMENT 1. SCAR PAIN /TPI HISTORY OF PRESENT ILLNESS DEPRESSION SCREENING: PHQ-2 (2015 EDITION) LITTLE INTEREST OR PLEASURE IN DOING THINGS?NOT AT ALL FEELING DOWN, DEPRESSED, OR HOPELESS?NOT AT ALL TOTAL SCORE0 GENERAL: 25-YEAR-OLD FEMALE BEING REFERRED BY [employer] TO EVALUATE PERSISTENT SECTION SCAR PAIN. PATIENT IS KNOWN TO OUR CLINIC AND WAS HERE IN 2018. SHE HAS SINCE HAD ANOTHER BABY A YEAR AGO. CONTINUES ON PAIN MEDICATION. PATIENT IS IN TEARS TODAY BECAUSE SHE FEELS GUILTY THAT SHE IS NOT ABLE TO LO[employer] SERVICES PROFESSIONAL HER CHILDREN DUE TO SEVERE SHARP ABDOMINAL PAIN LEFT GREATER THAN RIGHT THAT SHOOTS INTO LEFT CLITORIS AND INNER THIGH.ACOMPANIED IN EXAM ROOM WITH HER SISTER.PATIENT IS VERY WEEPY DURING VISIT.DISCUSSED MENTAL HEALTH AND PATIENT IS AGREEABLE TO BE EVALUATED.DENIES SUICIDAL OR HOMICIDAL IDEATIONS. REPORTING NORMAL BOWEL MOVEMENTS AND URINATION. DISCUSSED TREATMENT OPTIONS TO INCLUDE REPEATING SCAR NEUROMA INJECTIONS AND MEDICATION MANAGEMENT. - - -. FALL RISK SCREENING: SCREENING : NO FALLS REPORTED IN THE LAST YEAR , : NO FALLS REPORTED IN THE LAST YEAR. PAIN SCREENING: PATIENT HAS A COMPLAINT OF ACUTE OR CHRONIC PAIN :YES LOCATION OF PAIN:ABDOMEN, OTHER: AREA INTENSITY OF PAIN (SCALE OF 1 TO 10):8 WHAT DOES YOUR PAIN FEEL LIKE:BURNING, SHARP, TENDER DURATION:CONTINOUS, CONSTANT, ALL DAY, AWAKENS FROM SLEEP PAIN IS INCREASED BY:ACTIVITIES PAIN IS DECREASED BY:USE OF PAIN MEDICATIONS NURSING NOTE: - - -. PAIN CENTER INTAKE QUESTIONS: DO YOU HAVE A HISTORY OF MRSA? :NO DO YOU TAKE A BLOOD THINNERS? :NO DO YOU HAVE ANY BLEEDING DISORDERS? :NO ANY NEW NUMBNESS OR WEAKNESS IN YOUR LEGS OR ARMS? :YES LEFT LEG PAIN STOP AT HER KNEE ANY PACEMAKER,DEFIBRILLATOR, OR DORSAL COLUMN STIMULATOR? :NO DO YOU HAVE ANY RASHES OR OPEN SORES? :NO ARE YOU ALLERGIC TO IV DYE? :NO ARE YOU DIABETIC? :NO ANY NEW PROBLEMS WITH YOUR MEDICATIONS? :NO HAVE YOU RECEIVED A VACCINE IN THE PAST 30 DAYS? :NO DO YOU PLAN TO RECEIVE A VACCINE IN THE NEXT 21 DAYS? :NO DO YOU NEED ANY PRESCRIPTION? :NO DO YOU TAKE ANY IMMUNOSUPPRESSIVE MEDICATIONS? :NO IS THERE A CHANCE YOU COULD BE ? :NO ARE YOU BREAST FEEDING? :NO CURRENT MEDICATIONS TAKING MIRENA (52 MG) 20 MCG/24HR INTRAUTERINE DEVICE DIRECTED INTRAUTERINE TAKING GABAPENTIN 300 MG CAPSULE 1 CAPSULE ORALLY THREE TIMES A DAY TAKING DOCUSATE SODIUM 250 MG CAPSULE 1 CAPSULE NEEDED ORALLY ONCE A DAY TAKING PERCOCET 5-325 MG TABLET 1 TABLET NEEDED ORALLY EVERY 6 HRS NOT-TAKING GABAPENTIN 300 MG CAPSULE 1 TABLET ORALLY THREE TIMES A DAY NOT-TAKING GABAPENTIN 300 MG CAPSULE 1 CAPSULE ORALLY THREE TIMES A DAY NOT-TAKING PERCOCET 5-325 MG TABLET 1 TABLET NEEDED ORALLY EVERY 6 HRS NOT-TAKING ORILISSA 150 MG TABLET 1 TABLET ORALLY ONCE A DAY NOT-TAKING GABAPENTIN 300 MG CAPSULE 1 CAPSULE ORALLY ONCE A DAY NOT-TAKING EFFEXOR MEDICATION LIST REVIEWED AND RECONCILED WITH THE PATIENT PAST MEDICAL HISTORY ANXIETY GRAVES DISEASE DEPRESSION CHRONIC PELVIC PAIN ASTHMA ANXIETY DUE TO HYPERTHROID ERRATIC BOWEL HABBITS KIDNEY STONE DEPRESSION UTI MULTPY ENDOMETRIOSIS GRAVES DISEASE ALLERGIES DOXYCYCLINE: THROAT SWELLS AND JAUREGUI - SIDE EFFECTS DOXYCYCLINE CALCIUM: THROAT SWELL AND BURN - SIDE EFFECTS - ONSET DATE 10/02/1999 SURGICAL HISTORY D & C 06/2013 04/2014 NEPHROSTOMY TUBE PLACEMENT 2013 D & C 2016 DENTAL SURGERY NEPHROSTOMY TUBE 03/20/2019 03/27/2019 FAMILY HISTORY FATHER: ALIVE 60 YRS, DIAGNOSED WITH HYPERTENSION, OTHER MALIGNANT NEOPLASM OF UNSPECIFIED SITE MOTHER: ALIVE 58 YRS, HYPERTENSION, DIABETES, OTHER SPECIFIED CONDITIONS INFLUENCING HEALTH STATUS SIBLINGS: ALIVE SON(S): ALIVE DAUGHTER(S): ALIVE PATERNAL GRAND FATHER: , PROSTATE CANCER PATERNAL GRAND MOTHER: , LEUKEMIA 2 BROTHER(S) , 1 SISTER(S) - HEALTHY. 1 SON(S) , 1 DAUGHTER(S) - HEALTHY. DIABETES, DEPRESSION, ANXIETY, CERVICAL, BREAST, LUNG CANCER AND LEUKEMIA. SOCIAL HISTORY GENERAL: TOBACCO USE ARE YOU A:CURRENT EVERY DAY SMOKER SMOKING CESSATION INFORMATION GIVEN10/04/2020 [facility] QUESTIONNAIRE LATEX ALLERGY : HAVE YOU EVER DEVELOPED ANY TYPE OF REACTION AFTER HANDLING LATEX PRODUCTS SUCH RUBBER GLOVES, CONDOMS, DIAPHRAGMS, BALLOONS, SOCKS, OR UNDERWEAR?NO LATEX ALLERGY : HAVE YOU EVER DEVELOPED ANY TYPE OF REACTION DURING OR AFTER DENTAL APPOINTMENT, VAGINAL/RECTAL EXAMINATION, SURGICAL PROCEDURE, OR ANY OTHER EXPOSURE?NO LATEX RISK : HAVE YOU EVER HAD ANY DIFFICULTY BREATHING OR HIVES AFTER EATING OR HANDLING ANY FRUITS, OR VEGETABLES; SUCH KIWI, BANANAS, STONE FRUITS, OR CHESTNUTSNO LATEX RISK : DO YOU HAVE A PREVIOUS PERSONAL HISTORY OF MORE THAN NINE SURGERIES, SPINA BIFIDA, OR REPEATED CATHERIZATIONS? NO LATEX RISK : ARE YOU FREQUENTLY EXPOSED TO LATEX PRODUCTS IN YOUR OCCUPATION?NO DATE ASKED : 10/04/2020 ALCOHOL USE: YES, ONLY HOILDAYS. ALCOHOL SCREENING DID YOU HAVE A DRINK CONTAINING ALCOHOL IN THE PAST YEAR?YES HOW OFTEN DID YOU HAVE SIX OR MORE DRINKS ON ONE OCCASION IN THE PAST YEAR?NEVER (0 POINTS) HOW MANY DRINKS DID YOU HAVE ON A TYPICAL DAY WHEN YOU WERE DRINKING IN THE PAST YEAR?3 OR 4 (1 POINT) HOW OFTEN DID YOU HAVE A DRINK CONTAINING ALCOHOL IN THE PAST YEAR?MONTHLY OR LESS (1 POINT) POINTS2 INTERPRETATIONNEGATIVE RECREATIONAL DRUG USE DRUG USE?YES HOW OFTEN AND HOW MUCH? CBD DROP CAFFEINE CAFFEINE USE?YES HOW OFTEN AND HOW MUCH? SHE TAKE CAFFINE PILLS SEXUAL HX HAD SEX IN THE LAST 12 MONTHS (VAGINAL, ORAL, OR ANAL)?YES WITHMEN ONLY USE PROTECTION?NO HAVE YOU EVER HAD AN STD?YES GC?YES HIV / HEP-C SCREENING HIV TEST OFFERED TO PATIENT:YES DATE OFFERED:10/04/2018 TEST ACCEPTED:YES HEP-C TEST OFFERED TO PATIENT:YES DATE OFFERED:10/04/2018 TEST ACCEPTED:YES BROCHURE PROVIDED TO PATIENTNO GNOSTICISM GNOSTICISM NO CONFUCIANIST BELIEFS THAT WOULD IMPACT HEALTH CARE. [id number] AGNOSTIC LANGUAGE LANGUAGES SPOKEN:KHMER LEARNING BARRIERS / SPECIAL NEEDS CHANGE FROM LAST VISIT?NO BARRIERS TO LEARNING?NO HEARING IMPAIRED?NO VISION IMPAIRED?YES :CORRECTIVE LENSES COGNITIVELY IMPAIRED?NO READINESS TO LEARN?YES LEARNING PREFERENCES?YES :DEMONSTRATION/VERBAL INSTRUCTION LEARNING CAPABILITIES PRESENT?YES ADD EMOTIONAL BARRIERS?NO SPECIAL DEVICES?NO FINISH MIXER NEEDED?NO DOMESTIC VIOLENCE DO YOU FEEL SAFE IN YOUR ENVIRONMENT?YES OCCUPATION: STAY AT HOME MOTHER. DIET: REGULAR. EXERCISE: NONE. MARITAL STATUS: . OTHERS AT HOME: SPOUSE, CHILDREN. - PFS REFERRAL NEEDED?NO CLERGY REFERRAL NEEDED?NO PUBLIC HEALTH REFERRAL NEEDED?NO WAS THE PROVIDER NOTIFIED OF ANY PERTINENT INFO? N/A HAS THE PATIENT BEEN EDUCATED REGARDING HIS/HER PLAN OF CARE?YES HAS THE PATIENT BEEN EDUCATED REGARDING PAIN, THE RISK FOR PAIN, THE IMPORTANCE OF EFFECTIVE PAIN MANAGEMENT, AND THE PAIN ASSESSMENT PROCESS?YES ADVANCE DIRECTIVE ADVANCE DIRECTIVE DISCUSSED WITH PATIENT:YES 01/09/18 PT DOES NOT HAVE ANY ADVANCED DIRECTIVES AND SHE DECLINES INFORMATION AT THIS TIME. AD 01/09/18 1155 REVIEWED WITH PT. AD02/15/18 1427 REVIEWED WITH PT BV. HOSPITALIZATION/MAJOR DIAGNOSTIC PROCEDURE SURGICALY RELATED UTERINE INFECTION 10/2012 CHILDBIRTH 06/2013- 2018 SEPSIS 04/2019 REVIEW OF SYSTEMS CONSTITUTIONAL: ANY RECENT FEVER NO . CHILLS NO . WEIGHT CHANGE OF UNKNOWN REASONS NO . GASTROENTEROLOGY: NEW UNEXPLAINABLE CHANGES IN BOWEL CONTROL NO . CONSTIPATION NO . GENITOURINARY: ANY NEW CHANGE IN BLADDER CONTROL? NO . NEUROLOGY: NEW ONSET DIZZINESS OR NEUROLOGICAL CHANGES NOT MENTIONED NO . NEW NUMBNESS OR PAIN PATTERNS NOT MENTIONED AND PERTINENT TO TODAY'S VISIT NO . CARDIOLOGY: NEW CHEST PRESSURE NO . PATIENT DENIES NO . RESPIRATORY: UNEXPLAINABLE COUGH NO . NEW SHORTNESS OF BREATH NO . VITAL SIGNS WT 156 LBS, HT 59 IN, BMI 31.50 INDEX, BP 120/68 MM HG, HR 88 /MIN, RR 18 /MIN, TEMP 97.5 F, OXYGEN SAT % 98%, SAFE IN ENV? (Y/N) YEST.STEPHANIE BENEDICT. EXAMINATION GENERAL EXAMINATION: GENERAL ALERT.NO ACUTE DISTRESS . PSYCH AFFECT NORMAL,WEEPY . NECK: TRACHEA MIDLINE. NO CERVICAL OR SUPRACLAVICULAR LYMPHADENOPATHY NOTED . LUNGS: LUNG LAUGHLIN ARE CLEAR TO AUSCULTATION BILATERALLY. GOOD MOVEMENT OF AIR . HEART: S1, S2 IN A REGULAR RATE AND RHYTHM. NO SIGNIFICANT MURMURS, RUBS OR GALLOPS NOTED . ABDOMEN:. PALPATION: LEFT SUPRA PUBIC PAIN WITH LIGHT PALPATION.LEFT LOWER QUADRANT ABDOMINAL PAIN WITH LIGHT PALPATION. . 5 1/2 INCH INCISIONAL SCAR ACROSS LOWER ABDOMEN. 1/2 INCH BELOW IS AN ABDOMINAL INCISION WITH HYPERPATHIA. SCAR HAS HYPERPATHIA WITH PRESSURE. 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 PHONE NUMBER TO [facility] [place] WAS GIVEN TO PATIENT. , ISTOP REGISTRY REVIEWED AND DEMONSTRATES COMPLLIANCE. , RISKS OF NARCOTIC/OPIOD MEDICATIONS INCLUDES BUT IS NOT LIMITED TO RISK OF DEPENDANCE/DEVELOPMENT OF ADDICTION, MOOD DISTURBANCE AND DEPRESSION, OSTEOPOROSIS, HORMONAL AND LABIDAL CHANGES, RESPIRATORY DEPRESSION AND . PATIENT IS ADVISED NOT TO DRIVE OR DRINK ALCOHOL WHILE ON THESE MEDICATIONS PRINTED INFORMATION ON NEW MEDICATION LYRICA, THE PATIENT STATED THAT SHE HAD OXYCODONE AND MOVANTIK IN THE PAST AND DOES NOT NEED INFORMATION ON THESE MEDICATION, PATIENT ALSO STATED THAT SHE WILL NO LONGER TAKE HER CBD DROP EMORY BENEDICT. PROCEDURE CODES FA211 ESTABILISHED PATIENT [facility] CHARGE DISPOSITION & COMMUNICATION FOLLOW UP 6 WEEKS (REASON: MED MGMNT/NEW START LYRICA) ELECTRONICALLY SIGNED BY NATE GOODWIN ON 10/07/2020 AT 01:59 PM EDT DISCLAIMER : THIS IS A VISIT SUMMARY EXTRACTED FROM THE [employer] CHART. IT IS NOT A COPY OF THE [employer] PROGRESS NOTE. WILLIAM
== END ==
LOC: M PAIN 13:00
PROVIDERS: ATTEND Nurse Practitioner Family
DX: D36.15 Benign neoplasm of peripheral nerves and autonomic nervous system of abdomen (principal); R10.2 Pelvic and perineal pain; J45.909 Unspecified asthma, uncomplicated; F17.290 Nicotine dependence, other tobacco product, uncomplicated; Z86.59 Personal history of other mental and behavioral disorders; Z88.1 Allergy status to other antibiotic agents; Z79.899 Other long term (current) drug therapy

== ENCOUNTER → 2020-11-16 | Outpatient (CLI) | payer BC ==
--- NOTE | 2020-11-18 03:38 | ECWPNPC ---
PATIENT NAME: HUDSON MOSS : 1995 GENDER: FEMALE VISIT DATE: 11/16/2020 DISCHARGE DATE: 11/16/20 1455 VISIT LOCKED DATE TIME: PHYSICIAN: CHRISTINA HIGUERA RESOURCE: CHRISTINA HIGUERA REASON FOR APPOINTMENT 1. MED MGMNT/NEW START LYRICA HISTORY OF PRESENT ILLNESS GENERAL: HERE FOR FOLLOW-UP OF CHRONIC ABDOMINAL PAIN/SCAR NEUROMA PAIN. STARTED ON LYRICA 100 MG TWICE A DAY 6 WEEKS AGO. PATIENT HAS NOTICED NO IMPROVEMENT IN PAIN. PATIENT IS ACCOMPANIED IN THE EXAM ROOM WITH HER MOTHER. ALSO SUFFERS FROM CONSTIPATION BUT CANNOT TAKE MOVANTIK DUE TO COST. REPORTS SOME IMPROVEMENT WITH USE OF OXYCODONE PERIODICALLY FOR SEVERE PAIN EPISODES. IT DOES CAUSE SOME NAUSEA AT TIMES AFTER TAKING IT. HAS USED ZOFRAN IN THE PAST WITH OXYCODONE WITH IMPROVEMENT. PATIENT DID NOT BRING HER MEDICATIONS WITH HER TODAY. SHE IS ADVISED THAT IN THE FUTURE IF SHE DOES NOT BRING HER MEDICATIONS IN TO CLINIC APPOINTMENTS WE WILL NOT BE BE ABLE TO FILL HER MEDICATIONS PER CLINIC POLICY. SUFFERING FROM SEVERE MIGRAINE HEADACHE TODAY. PATIENT HAS MIGRAINE MEDICATION AT HOME THAT SHE WILL TAKE THAT USUALLY HELPS HER. -. FALL RISK SCREENING: SCREENING ONE FALL 2 WEEKS AGO, HAS A BURN ON HER LEFT HAND. PAIN SCREENING: PATIENT HAS A COMPLAINT OF ACUTE OR CHRONIC PAIN :YES LOCATION OF PAIN:ABDOMEN SCAR INTENSITY OF PAIN (SCALE OF 1 TO 10):9 WHAT DOES YOUR PAIN FEEL LIKE:BURNING, SHOOTING DURATION:CONSTANT, AWAKENS FROM SLEEP PAIN IS INCREASED BY:ACTIVITIES PAIN IS DECREASED BY:OTHERS NOTHING HELPS NURSING NOTE: -. PAIN CENTER INTAKE QUESTIONS: DO YOU HAVE A HISTORY OF MRSA? :YES DO YOU TAKE A BLOOD THINNERS? :NO DO YOU HAVE ANY BLEEDING DISORDERS? :NO ANY NEW NUMBNESS OR WEAKNESS IN YOUR LEGS OR ARMS? :YES LEFT LEG PAIN STOP AT HER KNEE ANY PACEMAKER,DEFIBRILLATOR, OR DORSAL COLUMN STIMULATOR? :NO DO YOU HAVE ANY RASHES OR OPEN SORES? :NO ARE YOU ALLERGIC TO IV DYE? :NO ARE YOU DIABETIC? :NO ANY NEW PROBLEMS WITH YOUR MEDICATIONS? :NO HAVE YOU RECEIVED A VACCINE IN THE PAST 30 DAYS? :NO DO YOU PLAN TO RECEIVE A VACCINE IN THE NEXT 21 DAYS? :NO DO YOU NEED ANY PRESCRIPTION? :YES OXYCODONE-ACETAMINOPHEN 5-325 MG DO YOU TAKE ANY IMMUNOSUPPRESSIVE MEDICATIONS? :NO IS THERE A CHANCE YOU COULD BE ? :NO ARE YOU BREAST FEEDING? :NO CURRENT MEDICATIONS TAKING MIRENA (52 MG) 20 MCG/24HR INTRAUTERINE DEVICE DIRECTED INTRAUTERINE TAKING GABAPENTIN 300 MG CAPSULE 1 CAPSULE ORALLY THREE TIMES A DAY TAKING DOCUSATE SODIUM 250 MG CAPSULE 1 CAPSULE NEEDED ORALLY ONCE A DAY TAKING PERCOCET 5-325 MG TABLET 1 TABLET NEEDED ORALLY EVERY 6 HRS TAKING LYRICA 100 MG CAPSULE 1 CAPSULE ORALLY BID TAKING OXYCODONE-ACETAMINOPHEN 5-325 MG TABLET 1 TABLET NEEDED ORALLY EVERY 6 HRS MDD4 #45 TAB SHOULD LAST 30 DAYS TAKING COLACE 100 MG CAPSULE 1 CAPSULE ORALLY TWICE DAILY TAKING SILVADENE 1 % CREAM 1 APPLICATION EXTERNALLY TWICE A DAY NOT-TAKING MOVANTIK 25 MG TABLET 1 TABLET IN THE MORNING ORALLY ONCE A DAY NOT-TAKING GABAPENTIN 300 MG CAPSULE 1 TABLET ORALLY THREE TIMES A DAY NOT-TAKING GABAPENTIN 300 MG CAPSULE 1 CAPSULE ORALLY THREE TIMES A DAY NOT-TAKING PERCOCET 5-325 MG TABLET 1 TABLET NEEDED ORALLY EVERY 6 HRS NOT-TAKING ORILISSA 150 MG TABLET 1 TABLET ORALLY ONCE A DAY NOT-TAKING GABAPENTIN 300 MG CAPSULE 1 CAPSULE ORALLY ONCE A DAY NOT-TAKING EFFEXOR MEDICATION LIST REVIEWED AND RECONCILED WITH THE PATIENT PAST MEDICAL HISTORY ANXIETY GRAVES DISEASE DEPRESSION CHRONIC PELVIC PAIN ASTHMA ANXIETY DUE TO HYPERTHROID ERRATIC BOWEL HABBITS KIDNEY STONE DEPRESSION UTI ENDOMETRIOSIS GRAVES DISEASE ONE FALL 2 WEEKS AGO, HAS A BURN ON HER LEFT HAND. ALLERGIES DOXYCYCLINE: THROAT SWELLS AND JAUREGUI - ALLERGY DOXYCYCLINE CALCIUM SURGICAL HISTORY 04/27/14 D & C 06/2013 04/2014 NEPHROSTOMY TUBE PLACEMENT D & C 2016 D&C DENTAL SURGERY NEPHROSTOMY TUBE 03/20/2019 03/27/2019 2ND DEGREE BURN 10/31/2020 SOCIAL HISTORY GENERAL: TOBACCO USE ARE YOU A:CURRENT EVERY DAY SMOKER SMOKING CESSATION INFORMATION GIVEN08/04/2020 [facility] CURRENTLY LATEX QUESTIONNAIRE LATEX ALLERGY : HAVE YOU EVER DEVELOPED ANY TYPE OF REACTION AFTER HANDLING LATEX PRODUCTS SUCH RUBBER GLOVES, CONDOMS, DIAPHRAGMS, BALLOONS, SOCKS, OR UNDERWEAR?NO LATEX ALLERGY : HAVE YOU EVER DEVELOPED ANY TYPE OF REACTION DURING OR AFTER DENTAL APPOINTMENT, VAGINAL/RECTAL EXAMINATION, SURGICAL PROCEDURE, OR ANY OTHER EXPOSURE?NO LATEX RISK : HAVE YOU EVER HAD ANY DIFFICULTY BREATHING OR HIVES AFTER EATING OR HANDLING ANY FRUITS, OR VEGETABLES; SUCH KIWI, BANANAS, STONE FRUITS, OR CHESTNUTSNO LATEX RISK : DO YOU HAVE A PREVIOUS PERSONAL HISTORY OF MORE THAN NINE SURGERIES, SPINA BIFIDA, OR REPEATED CATHERIZATIONS? NO LATEX RISK : ARE YOU FREQUENTLY EXPOSED TO LATEX PRODUCTS IN YOUR OCCUPATION?NO DATE ASKED : 11/16/2020 ALCOHOL USE: YES, VERY RARELY ONCE A MONTH. ALCOHOL SCREENING DID YOU HAVE A DRINK CONTAINING ALCOHOL IN THE PAST YEAR?YES HOW OFTEN DID YOU HAVE SIX OR MORE DRINKS ON ONE OCCASION IN THE PAST YEAR?NEVER (0 POINTS) HOW MANY DRINKS DID YOU HAVE ON A TYPICAL DAY WHEN YOU WERE DRINKING IN THE PAST YEAR?3 OR 4 (1 POINT) HOW OFTEN DID YOU HAVE A DRINK CONTAINING ALCOHOL IN THE PAST YEAR?MONTHLY OR LESS (1 POINT) POINTS2 INTERPRETATIONNEGATIVE RECREATIONAL DRUG USE DRUG USE?NO CAFFEINE CAFFEINE USE?YES HOW OFTEN AND HOW MUCH? SHE TAKE CAFFINE PILLS SEXUAL HX HAD SEX IN THE LAST 12 MONTHS (VAGINAL, ORAL, OR ANAL)?YES WITHMEN ONLY USE PROTECTION?NO HAVE YOU EVER HAD AN STD?YES GC?YES HIV / HEP-C SCREENING HIV TEST OFFERED TO PATIENT:YES DATE OFFERED:10/04/2018 TEST ACCEPTED:YES HEP-C TEST OFFERED TO PATIENT:YES DATE OFFERED:10/04/2018 TEST ACCEPTED:YES BROCHURE PROVIDED TO PATIENTNO LUTHERAN LUTHERAN NO MOSQUE BELIEFS THAT WOULD IMPACT HEALTH CARE. [id number] AGNOSTIC LANGUAGE LANGUAGES SPOKEN:PORTUGUESE LEARNING BARRIERS / SPECIAL NEEDS CHANGE FROM LAST VISIT?NO BARRIERS TO LEARNING?NO HEARING IMPAIRED?NO VISION IMPAIRED?YES :CORRECTIVE LENSES COGNITIVELY IMPAIRED?NO READINESS TO LEARN?YES LEARNING PREFERENCES?YES :DEMONSTRATION/VERBAL INSTRUCTION LEARNING CAPABILITIES PRESENT?YES EMOTIONAL BARRIERS?YES COMMENTS ADD SPECIAL DEVICES?NO JOURNALIST NEEDED?NO DOMESTIC VIOLENCE DO YOU FEEL SAFE IN YOUR ENVIRONMENT?YES OCCUPATION: STAY AT HOME MOTHER. DIET: REGULAR. EXERCISE: NONE. MARITAL STATUS: . OTHERS AT HOME: SPOUSE, CHILDREN. - PFS REFERRAL NEEDED?NO CLERGY REFERRAL NEEDED?NO PUBLIC HEALTH REFERRAL NEEDED?NO WAS THE PROVIDER NOTIFIED OF ANY PERTINENT INFO? N/A HAS THE PATIENT BEEN EDUCATED REGARDING HIS/HER PLAN OF CARE?YES HAS THE PATIENT BEEN EDUCATED REGARDING PAIN, THE RISK FOR PAIN, THE IMPORTANCE OF EFFECTIVE PAIN MANAGEMENT, AND THE PAIN ASSESSMENT PROCESS?YES ADVANCE DIRECTIVE ADVANCE DIRECTIVE DISCUSSED WITH PATIENT:YES 01/09/18 PT DOES NOT HAVE ANY ADVANCED DIRECTIVES AND SHE DECLINES INFORMATION AT THIS TIME. AD 01/09/18 1155 REVIEWED WITH PT. AD02/15/18 1427 REVIEWED WITH PT BV. HOSPITALIZATION/MAJOR DIAGNOSTIC PROCEDURE SURGICALY RELATED REVIEW OF SYSTEMS CONSTITUTIONAL: ANY RECENT FEVER NO . CHILLS NO . WEIGHT CHANGE OF UNKNOWN REASONS NO . GASTROENTEROLOGY: NEW UNEXPLAINABLE CHANGES IN BOWEL CONTROL NO . CONSTIPATION NO . GENITOURINARY: ANY NEW CHANGE IN BLADDER CONTROL? NO . NEUROLOGY: NEW ONSET DIZZINESS OR NEUROLOGICAL CHANGES NOT MENTIONED NO . NEW NUMBNESS OR PAIN PATTERNS NOT MENTIONED AND PERTINENT TO TODAY'S VISIT NO . CARDIOLOGY: NEW CHEST PRESSURE NO . PATIENT DENIES NO . RESPIRATORY: UNEXPLAINABLE COUGH NO . NEW SHORTNESS OF BREATH NO . VITAL SIGNS WT 156 LBS, HT 59 IN, BMI 31.50 INDEX, BP 124/73 MM HG, HR 105 /MIN, RR 18 /MIN, TEMP 98 F, OXYGEN SAT % 99%, SAFE IN ENV? (Y/N) YEST.STEPHANIE BENEDICT. EXAMINATION GENERAL EXAMINATION: GENERAL AWAKE,ALERT ,PLEASANT . PSYCH AFFECT NORMAL . LUNGS: LUNG LAUGHLIN ARE CLEAR TO AUSCULTATION BILATERALLY. GOOD MOVEMENT OF AIR . HEART: S1, S2 IN A REGULAR RATE AND RHYTHM. NO SIGNIFICANT MURMURS, RUBS OR GALLOPS NOTED . NO. 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 PATIENT FORGOT TO BRING IN ALL MEDICATIONS WE PRESCRIBE TO CLINIC TODAY.ADVISED THAT IN FUTURE IF MEDICATION IS NOT BROUGHT IN TO CLINIC WE WILL NOT BE ABLE TO REFILL NEEDED. I HAVE AGREED TO PRESCRIBE ZOFRAN 4 MG TO TAKE NEEDED AFTER TAKING OXYCODONE DUE TO COMPLAINTS OF NAUSEA AFTER TAKING PAIN PILL. TODAY I RECOMMEND INCREASING LYRICA TO 200 MG CAPSULE 1 TWICE DAILY. I AM RECOMMENDING THAT SHE TAKE COLACE 100 MG CAPSULE TWICE A DAY EVERY DAY FOR CONSTIPATION. CONTINUE PERIODIC USE OF OXYCODONE 5/325 FOR SEVERE PAIN EPISODES #45 TABLETS SHOULD LAST 30 DAYS. . PROCEDURE CODES FA211 ESTABILISHED PATIENT [facility] CHARGE DISPOSITION & COMMUNICATION FOLLOW UP 2 MONTHS (REASON: MEDICATION MANAGEMENT/URINE TOXICOLOGY/ASSESS INCREASE OF LYRICA/CONSIDER SCAR NEUROMA INJECTIONS) ELECTRONICALLY SIGNED BY NATE GOODWIN ON 11/17/2020 AT 03:15 PM EDT DISCLAIMER : THIS IS A VISIT SUMMARY EXTRACTED FROM THE [employer] CHART. IT IS NOT A COPY OF THE [employer] PROGRESS NOTE. TERRAD
== END ==
LOC: M PAIN 14:30
PROVIDERS: ATTEND Nurse Practitioner Family
DX: D36.15 Benign neoplasm of peripheral nerves and autonomic nervous system of abdomen (principal); R10.2 Pelvic and perineal pain; G89.29 Other chronic pain; J45.909 Unspecified asthma, uncomplicated; F17.200 Nicotine dependence, unspecified, uncomplicated; Z86.14 Personal history of Methicillin resistant Staphylococcus aureus infection; Z86.59 Personal history of other mental and behavioral disorders; Z88.1 Allergy status to other antibiotic agents; Z79.899 Other long term (current) drug therapy

== ENCOUNTER → 2021-03-16 | Outpatient (CLI) | payer BC, MEDICAID | LOC: M PAIN 14:15 | PROVIDERS: ATTEND Anesthesiology | DX: R10.2 Pelvic and perineal pain (principal); D36.10 Benign neoplasm of peripheral nerves and autonomic nervous system, unspecified; J45.909 Unspecified asthma, uncomplicated; F17.290 Nicotine dependence, other tobacco product, uncomplicated; Z86.59 Personal history of other mental and behavioral disorders; Z88.1 Allergy status to other antibiotic agents; Z79.899 Other long term (current) drug therapy ==

== ENCOUNTER → 2021-04-01 | Outpatient (CLI) | payer MEDICAID, SELFPAY | LOC: M PAIN 15:15 | PROVIDERS: ATTEND Anesthesiology | DX: R10.2 Pelvic and perineal pain (principal); D36.10 Benign neoplasm of peripheral nerves and autonomic nervous system, unspecified; J45.909 Unspecified asthma, uncomplicated; F17.290 Nicotine dependence, other tobacco product, uncomplicated; Z86.59 Personal history of other mental and behavioral disorders; Z88.1 Allergy status to other antibiotic agents; Z79.899 Other long term (current) drug therapy ==

== ENCOUNTER → 2021-04-28 | Outpatient (CLI) | payer SELFPAY | LOC: M PAIN 15:30 | PROVIDERS: ATTEND Anesthesiology | DX: R10.9 Unspecified abdominal pain (principal); G89.29 Other chronic pain; D36.15 Benign neoplasm of peripheral nerves and autonomic nervous system of abdomen; J45.909 Unspecified asthma, uncomplicated; F17.290 Nicotine dependence, other tobacco product, uncomplicated; Z86.59 Personal history of other mental and behavioral disorders; Z88.1 Allergy status to other antibiotic agents; Z79.899 Other long term (current) drug therapy ==

== ENCOUNTER → 2021-08-31 | Outpatient (CLI) | payer BC ==
[~2021-08-31] MED LIST changes: +[UNRECOGNIZED DRUG - CODE] PR; -[UNRECOGNIZED DRUG - CODE] PR
== END ==
LOC: M PAIN 14:00
PROVIDERS: ATTEND Anesthesiology
DX: M79.2 Neuralgia and neuritis, unspecified (principal); D36.10 Benign neoplasm of peripheral nerves and autonomic nervous system, unspecified; G89.29 Other chronic pain; J45.909 Unspecified asthma, uncomplicated; F17.290 Nicotine dependence, other tobacco product, uncomplicated; Z86.59 Personal history of other mental and behavioral disorders; Z88.1 Allergy status to other antibiotic agents; Z79.899 Other long term (current) drug therapy

== ENCOUNTER → 2021-09-20 | Outpatient (CLI) | payer BC | LOC: M PAIN 16:15 | PROVIDERS: ATTEND Anesthesiology | DX: Z53.29 Procedure and treatment not carried out because of patient's decision for other reasons (principal) ==

== ENCOUNTER → 2021-12-16 | Outpatient (CLI) | payer BC ==
[~2021-12-16] MED LIST changes: +ALBU2.5V10 INH; -ALBU83IN INH
== END ==
LOC: M PAIN 14:00
PROVIDERS: ATTEND Anesthesiology
DX: D36.10 Benign neoplasm of peripheral nerves and autonomic nervous system, unspecified (principal); G89.29 Other chronic pain; J45.909 Unspecified asthma, uncomplicated; F17.290 Nicotine dependence, other tobacco product, uncomplicated; Z86.59 Personal history of other mental and behavioral disorders; Z88.1 Allergy status to other antibiotic agents; Z79.899 Other long term (current) drug therapy

== ENCOUNTER → 2022-01-19 | Outpatient (CLI) | payer BC ==
[~2022-01-19] MED LIST changes: +BUPIVACAINE HCL 0.25% 30ML VIAL As Ordered ONE; +ISOVUE-M 300 61% 15ML VIAL As Ordered ONE; +LIDOCAINE 1% SDV 30ML VIAL As Ordered ONE; +NORCO, ANEXSIA 5/325MG TABLET (HYDROcodone/ACETAMINOPHEN) As Ordered ONE; +diazePAM 5MG TABLET As Ordered ONE; +oxyCODONE 5MG TAB As Ordered ONE
== END ==
LOC: M PAIN 13:30
PROVIDERS: ATTEND Anesthesiology
DX: D36.10 Benign neoplasm of peripheral nerves and autonomic nervous system, unspecified (principal); G58.8 Other specified mononeuropathies; J45.909 Unspecified asthma, uncomplicated; F17.290 Nicotine dependence, other tobacco product, uncomplicated; Z86.59 Personal history of other mental and behavioral disorders; Z88.1 Allergy status to other antibiotic agents; Z79.899 Other long term (current) drug therapy

== ENCOUNTER → 2022-04-07 | Outpatient (CLI) | payer BC ==
[~2022-04-07] MED LIST changes: -BUPIVACAINE HCL 0.25% 30ML VIAL As Ordered ONE; -ISOVUE-M 300 61% 15ML VIAL As Ordered ONE; -LIDOCAINE 1% SDV 30ML VIAL As Ordered ONE; -NORCO, ANEXSIA 5/325MG TABLET (HYDROcodone/ACETAMINOPHEN) As Ordered ONE; -diazePAM 5MG TABLET As Ordered ONE; -oxyCODONE 5MG TAB As Ordered ONE
== END ==
LOC: M PAIN 13:30
PROVIDERS: ATTEND Anesthesiology
DX: D36.10 Benign neoplasm of peripheral nerves and autonomic nervous system, unspecified (principal); R10.2 Pelvic and perineal pain; M79.2 Neuralgia and neuritis, unspecified; J45.909 Unspecified asthma, uncomplicated; F17.290 Nicotine dependence, other tobacco product, uncomplicated; Z86.59 Personal history of other mental and behavioral disorders; Z88.1 Allergy status to other antibiotic agents; Z79.899 Other long term (current) drug therapy

== ENCOUNTER → 2022-05-05 | Outpatient (CLI) | payer BC | LOC: M PAIN 13:30 | PROVIDERS: ATTEND Anesthesiology | DX: D36.10 Benign neoplasm of peripheral nerves and autonomic nervous system, unspecified (principal); G57.92 Unspecified mononeuropathy of left lower limb; G58.8 Other specified mononeuropathies; J45.909 Unspecified asthma, uncomplicated; F17.290 Nicotine dependence, other tobacco product, uncomplicated; Z86.59 Personal history of other mental and behavioral disorders; Z88.1 Allergy status to other antibiotic agents; Z79.899 Other long term (current) drug therapy ==

== ENCOUNTER → 2022-05-23 | Outpatient (CLI) | payer BC | LOC: M PAIN 14:45 | PROVIDERS: ATTEND Anesthesiology | DX: D36.10 Benign neoplasm of peripheral nerves and autonomic nervous system, unspecified (principal); G57.90 Unspecified mononeuropathy of unspecified lower limb; G58.8 Other specified mononeuropathies; J45.909 Unspecified asthma, uncomplicated; F17.290 Nicotine dependence, other tobacco product, uncomplicated; Z86.59 Personal history of other mental and behavioral disorders; Z88.1 Allergy status to other antibiotic agents; Z79.899 Other long term (current) drug therapy ==

== ENCOUNTER → 2022-08-18 | Outpatient (CLI) | payer BC | LOC: M PAIN 17:00 | PROVIDERS: ATTEND Anesthesiology | DX: R10.2 Pelvic and perineal pain (principal); M79.2 Neuralgia and neuritis, unspecified; J45.909 Unspecified asthma, uncomplicated; F17.290 Nicotine dependence, other tobacco product, uncomplicated; Z86.59 Personal history of other mental and behavioral disorders; Z88.1 Allergy status to other antibiotic agents; Z79.899 Other long term (current) drug therapy ==

== ENCOUNTER → 2022-12-22 | Outpatient (CLI) | payer BC | LOC: M PAIN 14:15 | PROVIDERS: ATTEND Nurse Practitioner Family | DX: D36.15 Benign neoplasm of peripheral nerves and autonomic nervous system of abdomen (principal); G58.8 Other specified mononeuropathies; G89.29 Other chronic pain; J45.909 Unspecified asthma, uncomplicated; F17.290 Nicotine dependence, other tobacco product, uncomplicated; Z86.59 Personal history of other mental and behavioral disorders; Z88.1 Allergy status to other antibiotic agents; Z79.899 Other long term (current) drug therapy ==

== ENCOUNTER → 2023-01-18 | Outpatient (CLI) | payer BC | LOC: M PLALAB 12:28 | PROVIDERS: ATTEND Specialist | DX: N92.6 Irregular menstruation, unspecified (principal) ==

== ENCOUNTER → 2023-03-02 | Outpatient (CLI) | payer BC | LOC: M PAIN 16:00 | PROVIDERS: ATTEND Nurse Practitioner Family | DX: D36.15 Benign neoplasm of peripheral nerves and autonomic nervous system of abdomen (principal); G89.29 Other chronic pain; F17.290 Nicotine dependence, other tobacco product, uncomplicated; Z80.49 Family history of malignant neoplasm of other genital organs; Z80.3 Family history of malignant neoplasm of breast; Z80.1 Family history of malignant neoplasm of trachea, bronchus and lung; Z80.42 Family history of malignant neoplasm of prostate; Z88.1 Allergy status to other antibiotic agents; Z79.899 Other long term (current) drug therapy ==

== ENCOUNTER → 2023-06-14 | Outpatient (CLI) | payer BC | LOC: M PAIN 14:30 | PROVIDERS: ATTEND Nurse Practitioner Family | DX: Z51.81 Encounter for therapeutic drug level monitoring (principal); Z79.891 Long term (current) use of opiate analgesic; D36.15 Benign neoplasm of peripheral nerves and autonomic nervous system of abdomen; G89.29 Other chronic pain; F17.290 Nicotine dependence, other tobacco product, uncomplicated; F41.9 Anxiety disorder, unspecified; E05.00 Thyrotoxicosis with diffuse goiter without thyrotoxic crisis or storm; F32.A Depression, unspecified; R10.2 Pelvic and perineal pain; J45.909 Unspecified asthma, uncomplicated; Z79.899 Other long term (current) drug therapy; Z88.1 Allergy status to other antibiotic agents ==

== ENCOUNTER → 2023-07-17 | Outpatient (CLI) | payer BC | LOC: M PAIN 14:45 | PROVIDERS: ATTEND Nurse Practitioner Family | DX: D36.15 Benign neoplasm of peripheral nerves and autonomic nervous system of abdomen (principal); G89.29 Other chronic pain; F41.9 Anxiety disorder, unspecified; F32.A Depression, unspecified; R10.2 Pelvic and perineal pain; J45.909 Unspecified asthma, uncomplicated; E05.00 Thyrotoxicosis with diffuse goiter without thyrotoxic crisis or storm; F17.290 Nicotine dependence, other tobacco product, uncomplicated; Z79.891 Long term (current) use of opiate analgesic; Z79.899 Other long term (current) drug therapy; Z88.1 Allergy status to other antibiotic agents ==

== ENCOUNTER → 2023-09-17 | Outpatient (CLI) | payer BC | LOC: M PAIN 16:30 | PROVIDERS: ATTEND Nurse Practitioner Family | DX: D36.15 Benign neoplasm of peripheral nerves and autonomic nervous system of abdomen (principal); G89.29 Other chronic pain; F41.9 Anxiety disorder, unspecified; F32.A Depression, unspecified; J45.909 Unspecified asthma, uncomplicated; K58.9 Irritable bowel syndrome, unspecified; E05.00 Thyrotoxicosis with diffuse goiter without thyrotoxic crisis or storm; F17.290 Nicotine dependence, other tobacco product, uncomplicated; Z79.891 Long term (current) use of opiate analgesic; Z79.899 Other long term (current) drug therapy; Z88.1 Allergy status to other antibiotic agents ==

== ENCOUNTER → 2023-12-04 | Outpatient (CLI) | payer BC | LOC: M PAIN 15:30 | PROVIDERS: ATTEND Nurse Practitioner Family | DX: D36.15 Benign neoplasm of peripheral nerves and autonomic nervous system of abdomen (principal); G89.29 Other chronic pain; R10.9 Unspecified abdominal pain; F41.9 Anxiety disorder, unspecified; F32.A Depression, unspecified; J45.909 Unspecified asthma, uncomplicated; E05.00 Thyrotoxicosis with diffuse goiter without thyrotoxic crisis or storm; F17.290 Nicotine dependence, other tobacco product, uncomplicated; Z79.891 Long term (current) use of opiate analgesic; Z79.899 Other long term (current) drug therapy; Z88.1 Allergy status to other antibiotic agents ==

== ENCOUNTER → 2024-01-14 | Outpatient (CLI) | payer BC ==
[~2024-01-14] MED LIST changes: +AMPH1CAP14 PO; +DULO1CAP6 PO; +GABA-1490 PO; +HYDR-4514 PO; +HYDR-4517 PO; +IBUP-1022 PO; +LORA1TAB23 PO; +ONDA-83 PO; +OXYC7.5T3; +PROP10TA56 PO; +TOPI25TA10 PO; +TRAZ-257 PO; +ZOLP10TA2 PO
== END ==
LOC: M PAIN 15:30
PROVIDERS: ATTEND Nurse Practitioner Family
DX: D36.15 Benign neoplasm of peripheral nerves and autonomic nervous system of abdomen (principal); G89.29 Other chronic pain; F41.9 Anxiety disorder, unspecified; E05.00 Thyrotoxicosis with diffuse goiter without thyrotoxic crisis or storm; F32.A Depression, unspecified; R10.2 Pelvic and perineal pain; J45.909 Unspecified asthma, uncomplicated; K58.9 Irritable bowel syndrome, unspecified; F17.290 Nicotine dependence, other tobacco product, uncomplicated; Z79.891 Long term (current) use of opiate analgesic; Z79.899 Other long term (current) drug therapy; Z88.1 Allergy status to other antibiotic agents

== ENCOUNTER 2024-02-01 10:20 | Day surgery (SDC) | payer BC ==
[~2024-02-01] VITALS: Ht 147.3 cm; Wt 74.3 kg
[~2024-02-01 10:20] MED LIST changes: -HYDR-4514 PO; -IBUP-1022 PO
[2024-02-01 10:50] LABS: HEMOGLOBIN 14.4 g/dl (12.0-15.5); MEAN CORPUSCULAR HEMOGLOBIN 32.5 pg (27.0-33.0); MEAN CORPUSCULAR HGB CONC 34.3 g/dl (32.0-36.5); MEAN CORPUSCULAR VOLUME 94.8 fl (80.0-96.0); PLATELET COUNT, AUTOMATED 186 10^3/uL (150-450); RED BLOOD COUNT 4.43 10^6/uL (4.00-5.40); WHITE BLOOD COUNT 4.5 10^3/uL (4.0-10.0)
[2024-02-01] MEDS ORDERED: LR 1,000 ML IV SCH ×3 (11:15→15:10)
[2024-02-01 11:23] LABS: HCG, SERUM QUALITATIVE NEGATIVE (NEGATIVE)
[2024-02-01] MEDS ORDERED: MIDAZOLAM 5MG/ML 1ML VIAL As Ordered ONE (12:07)
[2024-02-01] MEDS ORDERED: ROCURONIUM BROMIDE 50MG/5ML VIAL As Ordered ONE (12:13)
[2024-02-01] MEDS ORDERED: fentaNYL 100 MCG/2 ML INJECTION As Ordered ONE (12:13)
[2024-02-01] MEDS ORDERED: propofoL 500 MG/50 ML VIAL As Ordered ONE (12:14)
[2024-02-01] MEDS: MORPHINE 2 MG/ML 1ML VIAL IV ONE (12:18)
[2024-02-01] MEDS ORDERED: ONDANSETRON 4MG 2ML VIAL As Ordered ONE (12:18)
[2024-02-01] MEDS ORDERED: SUGAMMADEX SODIUM 500 MG/5 ML VIAL (BRIDION) As Ordered ONE (12:20)
[2024-02-01] MEDS ORDERED: ACETAMINOPHEN 1000MG 100ML IV BAG As Ordered ONE (12:21)
[2024-02-01] MEDS ORDERED: dexmedeTOMIDine (4MCG/ML)200MCG/50ML BTL (PRECEDEX) As Ordered ONE (12:58)
[2024-02-01] MEDS ORDERED: KETAMINE HCL 200MG/20ML VIAL As Ordered ONE (13:15)
[2024-02-01] MEDS ORDERED: ePHEDrine SULFATE 25 MG/5 ML(5MG/ML) SYRINGE As Ordered ONE (13:26)
[2024-02-01] MEDS ORDERED: PHENYLephrine 500MCG 5ML (100MCG/ML) SYRINGE As Ordered ONE (13:26)
[2024-02-01] MEDS ORDERED: KETOROLAC 60MG 2ML VIAL As Ordered ONE (14:27)
[2024-02-01] MEDS ORDERED: LACRILUBE (AKWA TEARS) OPHTH OINT 3.5GM As Ordered ONE (14:43)
[2024-02-01] MEDS ORDERED: HYDROMORPHONE HCL 0.5 MG/ 0.5 ML SYRINGE IV PRN (14:55)
[2024-02-01] MEDS ORDERED: ONDANSETRON 4MG 2ML VIAL IV PRN (14:55)
[2024-02-01] MEDS ORDERED: oxyCODONE 5MG TAB PO PRN (14:55)
[2024-02-01] MEDS ORDERED: IBUP-1022 PO (15:02)
[2024-02-01] MEDS: fentaNYL 100 MCG/2 ML INJECTION IV PRN (15:38)
[2024-02-01] MEDS: PERCOCET 5MG/325MG TAB PO PRN (15:42)
[2024-02-01 16:32] VITALS: BP 122/62; TEMP 96.7; O2SAT 100
[2024-02-03] MEDS ORDERED: HYDR-4514 PO (13:04)
== END 2024-02-01 17:00 | disposition home or self-care (01) ==
LOC: M SDC 10:20
PROVIDERS: ATTEND Specialist
DX: R10.2 Pelvic and perineal pain (principal); N80.00 Endometriosis of the uterus, unspecified; Z88.1 Allergy status to other antibiotic agents
CPT/HCPCS: 36415; 58662; 84703; 85027; J0131; J0665; J1100; J1885; J2250; J2371; J2405; J3010

== ENCOUNTER → 2024-03-17 | Outpatient (CLI) | payer BC ==
[~2024-03-17] MED LIST changes: +GABA-1172 PO; -GABA-282 PO; +HYDR-4514 PO; +IBUP-1022 PO
== END ==
LOC: M PAIN 16:00
PROVIDERS: ATTEND Nurse Practitioner Family
DX: D36.15 Benign neoplasm of peripheral nerves and autonomic nervous system of abdomen (principal); G89.29 Other chronic pain; F41.9 Anxiety disorder, unspecified; F32.A Depression, unspecified; R10.2 Pelvic and perineal pain; J45.909 Unspecified asthma, uncomplicated; E05.00 Thyrotoxicosis with diffuse goiter without thyrotoxic crisis or storm; F17.290 Nicotine dependence, other tobacco product, uncomplicated; Z79.891 Long term (current) use of opiate analgesic; Z79.899 Other long term (current) drug therapy; Z88.1 Allergy status to other antibiotic agents

== ENCOUNTER → 2024-06-06 | Outpatient (CLI) | payer BC | LOC: M PAIN 16:00 | PROVIDERS: ATTEND Anesthesiology | DX: R10.2 Pelvic and perineal pain (principal); D36.10 Benign neoplasm of peripheral nerves and autonomic nervous system, unspecified; Z79.891 Long term (current) use of opiate analgesic; G57.80 Other specified mononeuropathies of unspecified lower limb; J45.909 Unspecified asthma, uncomplicated; F41.9 Anxiety disorder, unspecified; E05.00 Thyrotoxicosis with diffuse goiter without thyrotoxic crisis or storm; F32.A Depression, unspecified; F17.290 Nicotine dependence, other tobacco product, uncomplicated; Z79.899 Other long term (current) drug therapy; Z88.1 Allergy status to other antibiotic agents ==

== ENCOUNTER → 2024-07-03 | Outpatient (CLI) | payer BC | LOC: M PAIN 13:30 | PROVIDERS: ATTEND Anesthesiology | DX: D36.15 Benign neoplasm of peripheral nerves and autonomic nervous system of abdomen (principal); G89.29 Other chronic pain; R10.2 Pelvic and perineal pain; Z79.891 Long term (current) use of opiate analgesic; Z79.899 Other long term (current) drug therapy; F17.290 Nicotine dependence, other tobacco product, uncomplicated; Z88.1 Allergy status to other antibiotic agents ==

== ENCOUNTER → 2025-05-07 | Outpatient (CLI) | payer BC, MEDICAID ==
[~2025-05-07] MED LIST changes: -IBUP-1022 PO; +IBUP600T42 PO; +TOPI-256 PO; -TOPI25TA10 PO; +ZOLP10TA11 PO; -ZOLP10TA2 PO; +[UNRECOGNIZED DRUG - CODE] PR; -[UNRECOGNIZED DRUG - CODE] PR
== END ==
LOC: M WHC 07:33
PROVIDERS: ATTEND Nurse Practitioner Family
DX: Z34.82 Encounter for supervision of other normal pregnancy, second trimester (principal); Z3A.20 20 weeks gestation of pregnancy